=== PATIENT | female | born 1955 ===

== ENCOUNTER 2016-11-19 06:59 | Day surgery (SDC) | payer MEDICAID ==
[2016-11-19 07:58] VITALS: BMI 27.7
[2016-11-19] MEDS ORDERED: Lidocaine Hydrochloride 5 ML INJ ONE (09:56)
[2016-11-19] MEDS ORDERED: Propofol 10 mg/ml Inj (20 ML) ONE (09:56)
[2016-11-19 10:26] VITALS: TEMP 97.4; O2SAT 99
[2016-11-19 10:59] VITALS: RESP 12
[2016-11-19 11:01] VITALS: BP 109/68; PULSE 57
== END 2016-11-19 10:59 | disposition home or self-care (01) ==
LOC: C.ENDO 06:59
PROVIDERS: ATTEND Internal Medicine Gastroenterology
DX: Z12.11 Encounter for screening for malignant neoplasm of colon (principal); K64.1 Second degree hemorrhoids
CPT/HCPCS: 45378; J2704